=== PATIENT | male | born 1975 | race Caucasian/White ===

== ENCOUNTER 2020-09-11 08:51 | Emergency (ER) | payer OTHER ==
[2020-09-11] MEDS ORDERED: NAPROXEN500 MG PO (10:42)
== END 2020-09-11 10:57 | disposition home or self-care (01) ==
LOC: FER 08:51
DX: S80.02XA Contusion of left knee, initial encounter (principal); I10 Essential (primary) hypertension; W01.0XXA Fall on same level from slipping, tripping and stumbling without subsequent striking against object, initial encounter; Y92.69 Other specified industrial and construction area as the place of occurrence of the external cause; Y99.0 Civilian activity done for income or pay
CPT/HCPCS: 73564

== ENCOUNTER 2020-09-18 07:25 | Emergency (ER) | payer OTHER ==
[~2020-09-18 07:25] MED LIST: NAPROXEN500 MG PO
[2020-09-18 08:31] LABS: BASOPHIL 0.4 % (0-2); EOSINOPHIL 2.1 % (0-5); HGB 15.4 g/dl (13.2-18.0); LYMPHOCYTE 29.3 % (15-48); MCH 34.1 pg (25.0-31.0); MCV 97.6 fL (78.0-100.0); MONOCYTE 6.4 % (0-12); NEUTROPHIL 61.6 % (41-80); NRBC 0; PLT 225 K/uL (150-400); RBC 4.51 M/uL (4.70-6.00); RDW 12.5 % (11.5-14.0); WBC 9.2 K/uL (4.0-10.5)
[2020-09-18 09:12] LABS: ALBUMIN 3.9 g/dL (3.4-5.0); ALKALINE PHOSHATASE 76 U/L (46-116); ALT 37 U/L (16-63); AST 20 U/L (15-37); BILIRUBIN - TOTAL 0.6 mg/dL (0.2-1.0); BUN 14 mg/dL (7-18); BUN/CREAT RATIO (CALC) 19.7 RATIO; C-REACTIVE PROTEIN <0.20 mg/dL (<=0.90); CHLORIDE 103 mmol/L (98-107); CO2 (BICARBONATE) 25 mmol/L (21-32); CREATININE 0.71 mg/dL (0.67-1.17); GLOBULIN (CALCULATION) 3.1 g/dL; GLUCOSE 137 mg/dL (74-106)
[2020-09-18] MEDS ORDERED: CEPHALEXIN500 M1 PO (09:59)
== END 2020-09-18 11:02 | disposition home or self-care (01) ==
LOC: FER 07:25
PROVIDERS: Emergency Medicine
DX: S92.425A Nondisplaced fracture of distal phalanx of left great toe, initial encounter for closed fracture (principal); G62.9 Polyneuropathy, unspecified; E11.9 Type 2 diabetes mellitus without complications; Z87.891 Personal history of nicotine dependence; Z79.84 Long term (current) use of oral hypoglycemic drugs; Z79.899 Other long term (current) drug therapy; X58.XXXA Exposure to other specified factors, initial encounter
CPT/HCPCS: 36415; 73630; 80053; 83605; 84145; 85025; 86140; 93005; J0690; J1170; J2405; J7030